=== PATIENT | female | born 1965 | race Caucasian/White ===

== ENCOUNTER → 2016-05-01 | Outpatient (CLI) | payer OTHER ==
[~2016-05-01] MED LIST: GASTROGRAFIN SOLUTION 30ML (Q9963) As Ordered ONE; ISOVUE-370 76% 100ML VIAL (Q9967) As Ordered ONE
--- NOTE | 2016-05-02 06:36 | REP ---
The clinical: Abdominal pain with nausea and diarrhea. Technique: Axial contrast enhanced images from the lung bases to the pubic symphysis using oral and 100 ml Isovue 370 intravenous contrast material with precontrast and delayed images of the abdomen as well as coronal and sagittal re-formations. Findings: Lung bases are clear. Visualized heart and pericardium normal. Liver demonstrates few scattered hypodensities measuring up to approximately 1.3 cm diameter which may reflect small cysts/hemangioma. No further significant hepatic lesions are identified. Spleen, pancreas, gallbladder, and and bilateral adrenal glands are normal. Kidneys demonstrate bilateral simple cysts measuring up to 1 cm in the right kidney and 1.6 cm in left kidney. The enteric system is without obstruction or acute inflammatory process and a normal terminal ileum and cecum are identified in the right lower quadrant. Sigmoid diverticula noted without acute diverticulitis. Pelvis demonstrates normal bladder and evidence for hysterectomy with multicystic appearance to the right adnexa measuring approximately 6.0 x 5.0 x 3.6 cm. No pelvic fluid/ascites. No intraperitoneal or retroperitoneal adenopathy. Abdominal aorta and vasculature appears normal. Surrounding musculoskeletal structures demonstrate age-related changes. Impression: 1. Hepatic and renal hypodensities likely representing benign lesions including cysts and possible hepatic hemangiomas. 2. Colonic diverticulosis without evidence for acute diverticulitis. 3. Enlarged multicystic appearance to the right ovary warrants followup ultrasound examination in 4-6 weeks. Signed by Tim Corona MD 05/02/2016 06:28 A
== END ==
LOC: M RAD 16:15
PROVIDERS: ATTEND Physician Assistant
DX: K57.30 Diverticulosis of large intestine without perforation or abscess without bleeding (principal); N83.291 Other ovarian cyst, right side; R10.84 Generalized abdominal pain; R19.7 Diarrhea, unspecified; R11.0 Nausea; R14.0 Abdominal distension (gaseous)
CPT/HCPCS: 74178; Q9963; Q9967

== ENCOUNTER → 2016-05-03 | Outpatient (CLI) | payer OTHER ==
--- NOTE | 2016-05-03 09:57 | REP ---
Gastric emptying nuclear scintigraphy: History: Nausea, bloating. Abdominal pain. Vomiting and constipation. Technique: 1.1 mCi of technetium-99m sulfur colloid was ingested in two scrambled eggs and 6 ounces of water and sequential anterior and posterior images are acquired for an 89-minute imaging observation period. Regions of interest are drawn around the stomach to plot gastric emptying. Scintigraphic findings: Expected T1/2 is 90 minutes. 63 % emptying is observed in this patient during the 89-minute imaging observation period, for a calculated T1/2 in this patient of 73 minutes. Impression: Normal gastric emptying. Signed by Josef Marley MD 05/03/2016 09:48 A
== END ==
LOC: M RAD 07:42
PROVIDERS: ATTEND Physician Assistant
DX: R10.84 Generalized abdominal pain (principal); R11.0 Nausea; R14.0 Abdominal distension (gaseous)

== ENCOUNTER → 2016-08-07 | Outpatient (CLI) | payer OTHER ==
--- NOTE | 2016-08-07 18:01 | REP ---
Clinical: Cough. Technique: Axial noncontrast images from the thoracic inlet to the upper abdomen with coronal and sagittal re-formations. Findings: The bilateral lung valentine are well-aerated, symmetric, and clear. No focal consolidation, nodule or mass lesion. Significant interstitial changes are appreciated. The tracheobronchial tree is patent. No pleural effusion/reaction or pneumothorax. Mediastinum is grossly unremarkable. Surrounding musculoskeletal structures are intact. Bilateral adrenal glands normal. Impression: Normal noncontrast chest CT. No acute mediastinal or pleuroparenchymal process. Signed by Tim Corona MD 08/07/2016 05:52 P
== END ==
LOC: M RAD 17:11
PROVIDERS: ATTEND Internal Medicine Cardiovascular Disease
DX: R05 Cough (principal); R91.8 Other nonspecific abnormal finding of lung field

== ENCOUNTER → 2016-10-18 | Outpatient (CLI) | payer OTHER ==
--- NOTE | 2016-10-18 18:20 | REP ---
HISTORY: Benign neoplasm. COMPARISON: Multiple, the latest 01/24/2016. Gadolinium utilized: 13 mL of ProHance. The craniovertebral junction is unchanged. No abnormal signal has developed in the imaged portion of the spinal cord. The ventricles and sulci are unchanged. There is unchanged T2 hypersignal intensity in the anterior right temporal lobe with dilatation of the anterior horn of the right lateral ventricle, status quo. There is no tad mass effect on the noncontrast scan and there are no enhancing mass lesions on the post contrast scan. There is no change in the appearance of the deep cerebral white matter. No abnormal signal is seen on the DWI or ADC mapped images that would be considered consistent with an acute stroke. The imaged paranasal sinuses and mastoid air cells are unchanged. The cerebellopontine angles and posterior fossa are unchanged. The orbital and petrous structures are stable. IMPRESSION: No change from the prior exam. 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 Signed by Duc Sarkar DO 10/19/2016 10:13 A
== END ==
LOC: M RAD 12:34
PROVIDERS: ATTEND Psychiatry & Neurology Neurology
DX: D32.0 Benign neoplasm of cerebral meninges (principal); R47.01 Aphasia
CPT/HCPCS: 70553; A9576

== ENCOUNTER 2018-01-23 16:35 | Emergency (ER) | payer OTHER ==
[2018-01-23] MEDS: METOCLOPRAMIDE INJ 10MG/2ML VIAL (J2765) IV (17:40)
[2018-01-23] MEDS: NS 1,000 ML IV (17:41)
[2018-01-23 17:45] LABS: HEMATOCRIT 40.9 % (36.0-47.0); HEMOGLOBIN 13.6 g/dl (12.0-15.5); MEAN CORPUSCULAR HEMOGLOBIN 30.3 pg (27.0-33.0); MEAN CORPUSCULAR HGB CONC 33.3 g/dl (32.0-36.5); MEAN CORPUSCULAR VOLUME 91.1 fl (80.0-96.0); PLATELET COUNT, AUTOMATED 234 10^3/uL (150-450); RED BLOOD COUNT 4.49 10^6/uL (4.00-5.40); RED CELL DISTRIBUTION WIDTH 12.5 % (11.5-14.5); WHITE BLOOD COUNT 7.5 10^3/uL (4.0-10.0)
[2018-01-23 18:01] LABS: ANION GAP 7 MEQ/L (8-16); BLOOD UREA NITROGEN 11 MG/DL (7-18); CALCIUM LEVEL 8.5 MG/DL (8.5-10.1); CARBON DIOXIDE LEVEL 28 MEQ/L (21-32); CHLORIDE LEVEL 107 MEQ/L (98-107); CREATININE FOR GFR 0.76 MG/DL (0.55-1.30); GLOMERULAR FILTRATION RATE > 60.0 (>51); GLUCOSE, FASTING 96 MG/DL (70-100); POTASSIUM SERUM 3.9 MEQ/L (3.5-5.1); SODIUM LEVEL 142 MEQ/L (136-145)
[2018-01-23 18:04] LABS: INR 0.94; PROTHROMBIN TIME 12.7 SECONDS (12.1-14.4)
== END 2018-01-23 18:53 | disposition home or self-care (01) ==
LOC: M ED 16:35
DX: R51 Headache (principal); Z88.5 Allergy status to narcotic agent; Z88.8 Allergy status to other drugs, medicaments and biological substances; Z79.82 Long term (current) use of aspirin
CPT/HCPCS: J2765

== ENCOUNTER 2018-06-17 13:05 | Emergency (ER) | payer OTHER ==
[~2018-06-17] VITALS: Ht 160 cm; Wt 65.9 kg
[~2018-06-17 13:05] MED LIST changes: +ACET-683 PO; +ASPI81TA85 PO; -GASTROGRAFIN SOLUTION 30ML (Q9963) As Ordered ONE; -ISOVUE-370 76% 100ML VIAL (Q9967) As Ordered ONE; +REGL10TA6 PO
[2018-06-17] MEDS ORDERED: LEXA1TAB PO (13:12)
[2018-06-17] MEDS ORDERED: ATOR1TAB21 PO (13:12)
--- NOTE | 2018-06-17 13:45 | REP ---
CT Head without contrast HISTORY: Injury COMPARISON: 01/23/2018 The patient is status post right frontotemporal craniotomy. Decreased attenuation is present in the anterior right temporal lobe. There is dilatation of the overlying cortical sulci and temporal horn of the right lateral ventricle. This represents encephalomalacia. There is no intraparenchymal hemorrhage, acute infarct, mass or midline shift. There is no hydrocephalus. There is no extra cerebral collection. There is no fracture. The visualized sinuses are clear. IMPRESSION: Right temporal lobe encephalomalacia. Electronically Signed by Jose Dodson MD 06/17/2018 01:37 P
[2018-06-17 15:21] VITALS: BP 131/83
== END 2018-06-17 15:24 | disposition home or self-care (01) ==
LOC: M ED 13:05
DX: S06.0X0A Concussion without loss of consciousness, initial encounter (principal); W00.0XXA Fall on same level due to ice and snow, initial encounter; Y92.89 Other specified places as the place of occurrence of the external cause; F32.9 Major depressive disorder, single episode, unspecified; Z88.5 Allergy status to narcotic agent; Z79.899 Other long term (current) drug therapy; Z79.82 Long term (current) use of aspirin; Z86.79 Personal history of other diseases of the circulatory system

== ENCOUNTER → 2019-09-15 | Outpatient (CLI) | payer OTHER ==
[~2019-09-15] MED LIST changes: -ASPI81TA85 PO; +ASPI81TA86 PO; +ATOR1TAB21 PO; +LEXA1TAB PO
--- NOTE | 2019-09-16 09:23 | REPMRS ---
Patient History The patient states she has not had a clinical breast exam in over a year. Patient has history of skin cancer at age 25. Family history of breast cancer at age 38 in sister, unknown cancer in father. Digital Woman Screen Mammo: September 15, 2019 - Exam #: [id number] Bilateral CC and MLO view(s) were taken. Technologist: Kristin Mccain, Technologist Prior study comparison: January 19, 2017, bilateral digital mammo screening bilat, performed at [facility]. January 22, 2015, bilateral digital woman screen mammo, performed at [facility]. September 20, 2012, bilateral digital woman screen mammo, performed at [facility]. FINDINGS: There are scattered fibroglandular densities. The Volpara volumetric breast density category is:B. There has been no change in the appearance of the mammogram from the prior studies. There is a mild amount of scattered fibroglandular density which is fairly symmetric. There is no interval development of dominant mass, architectural distortion, or grouped microcalcification suggestive of malignancy. 3-D tomosynthesis shows no additional findings. Assessment: BI-RADS/ACR category 1 mammogram. Negative Mammogram. Recommendation Routine screening mammogram of both breasts in 1 year (for women over age 40). This patient's Lifetime Breast Cancer Risk is estimated at 19.4 %. This mammogram was interpreted with the aid of an FDA-approved computer-aided dectection system. Electronically Signed By: Rehan Marley MD 09/16/19 0923
== END ==
LOC: M WHC 13:29
PROVIDERS: ATTEND Family Medicine
DX: Z12.31 Encounter for screening mammogram for malignant neoplasm of breast (principal); Z80.3 Family history of malignant neoplasm of breast; Z85.828 Personal history of other malignant neoplasm of skin

== ENCOUNTER → 2021-06-14 | Outpatient (CLI) | payer OTHER | LOC: M WHC 08:51 | PROVIDERS: ATTEND Student in an Organized Health Care Education/Training Program | DX: Z12.31 Encounter for screening mammogram for malignant neoplasm of breast (principal); Z80.3 Family history of malignant neoplasm of breast; Z85.9 Personal history of malignant neoplasm, unspecified; M85.89 Other specified disorders of bone density and structure, multiple sites; Z13.29 Encounter for screening for other suspected endocrine disorder ==

== ENCOUNTER → 2024-01-17 | Outpatient (CLI) | payer OTHER | LOC: M WHC 06:38 | PROVIDERS: ATTEND Internal Medicine | DX: Z12.31 Encounter for screening mammogram for malignant neoplasm of breast (principal); R92.323 Mammographic fibroglandular density, bilateral breasts ==

== ENCOUNTER → 2024-12-26 | Outpatient (CLI) | payer OTHER ==
[~2024-12-26] MED LIST changes: +ISOVUE-370 76% 100 ML VIAL ONE
== END ==
LOC: M PLAIMG 13:37
PROVIDERS: ATTEND Internal Medicine
DX: R74.8 Abnormal levels of other serum enzymes (principal)
CPT/HCPCS: 74178; Q9967